=== PATIENT | female | born 1950 | race Caucasian/White ===

== ENCOUNTER → 2018-03-01 | Outpatient (CLI) | payer MEDICARE | LOC: M.RAD 01-02 10:09 | DX: Z12.31 Encounter for screening mammogram for malignant neoplasm of breast (principal); M85.89 Other specified disorders of bone density and structure, multiple sites; Z78.0 Asymptomatic menopausal state ==

== ENCOUNTER → 2019-03-10 | Outpatient (CLI) | payer MEDICARE | LOC: M.RAD 06:59 | DX: Z12.31 Encounter for screening mammogram for malignant neoplasm of breast (principal) ==

== ENCOUNTER → 2020-03-29 | Outpatient (CLI) | payer MEDICARE | LOC: M.RAD 07:30 | PROVIDERS: ATTEND Family Medicine | DX: Z12.31 Encounter for screening mammogram for malignant neoplasm of breast (principal) ==

== ENCOUNTER 2020-09-25 08:55 | Emergency (ER) | payer MEDICARE ==
[~2020-09-25] VITALS: Ht 154.9 cm; Wt 63.5 kg
[2020-09-25] MEDS ORDERED: PRAVASTATIN SOD80 MG PO (09:07)
[2020-09-25] MEDS ORDERED: NORVASC10 MG PO (09:08)
[2020-09-25 09:29] LABS: ABSOLUTE EOSINOPHILS 0.1 thou/uL (0.0-0.7); ABSOLUTE MONOCYTES 0.6 thou/uL (0.0-1.2); ABSOLUTE NEUTROPHILS 4.8 thou/uL (1.6-8.1); BASOPHILS 0.6 %; EOSINOPHILS 1.8 %; HEMATOCRIT 41.3 % (37.0-47.0); HEMOGLOBIN 13.7 gm/dL (12.0-15.0); LYMPHOCYTES 26.3 %; MCHC 33.3 g/dL (28.0-37.0); MONOCYTES 7.7 %; MPV 6.9 fl. (7.2-11.1); NUCLEATED RBCS 0 /100WBC; PLATELET COUNT* 315 thou/uL (150-400); POLYS 63.6 %; RBC 4.74 mil/uL (4.20-5.00); RDW-CV 12.8 % (10.5-14.5); WBC 7.5 thou/uL (4.0-11.0)
[2020-09-25 09:41] LABS: CALCIUM 8.7 mg/dL (8.5-10.1); POTASSIUM 4.1 mmol/L (3.5-5.1)
[2020-09-25 09:45] LABS: APTT 26.5 Seconds (25.0-31.3); PROTIME 10.5 Seconds (9.20-11.50)
[2020-09-25 09:52] LABS: ALBUMIN 3.4 g/dL (3.4-5.0); TOTAL BILIRUBIN 0.7 mg/dL (<0.1-1.0)
[2020-09-25 11:50] VITALS: BP 176/75
--- NOTE | 2020-09-26 10:16 | EKG ---
[place] [address] ELECTROCARDIOGRAM REPORT Name: DEA DHILLON Room: [facility]#: [id number] Admission: 09/25/20 Attend Phys: Discharge: 09/25/20 Date of : 50 Date of Service: 09/25/20901 Report #: [id number] THIS REPORT FOR: //name// [facility] ED Test Date: 2020-09-25 Test Time: 09:02:31 Pat Name: DEA DHILLON Department: Room: Gender: Pipe Maker: NELLI : 1950 Requested By: Shiela rEickson Order Number: [id number] MD: Usama Maya Measurements Intervals [place] Rate: 69 P: 7 SC: 177 QRS: 19 QRSD: 103 T: 7 QT: 441 QTc: 473 Interpretive Statements Sinus rhythm Paired ventricular premature complexes Borderline repolarization abnormality Baseline wander in lead(s) II,aVF,V3 No previous ECG available for comparison Electronically Signed On 09-26-2020 10:16:27 [employer]PER[employer] by Usama Maya [email or web address] <ELECTRONICALLY SIGNED> By: Usama Maya MD, FACC 09/26/20 [id number] Usama Maya MD, [facility] /EPI
== END 2020-09-25 11:53 | disposition home or self-care (01) ==
LOC: M.ERS 08:55
PROVIDERS: Personal Emergency Response Attendant
DX: R07.89 Other chest pain (principal); M32.9 Systemic lupus erythematosus, unspecified; R20.0 Anesthesia of skin; Z88.0 Allergy status to penicillin; Z98.890 Other specified postprocedural states

== ENCOUNTER → 2021-03-28 | Outpatient (CLI) | payer MEDICARE ==
[~2021-03-28] MED LIST: NORVASC10 MG PO; PRAVASTATIN SOD80 MG PO
== END ==
LOC: M.RAD 07:00
PROVIDERS: ATTEND Family Medicine
DX: Z12.31 Encounter for screening mammogram for malignant neoplasm of breast (principal); N64.89 Other specified disorders of breast

== ENCOUNTER → 2021-10-20 | Outpatient (CLI) | payer MEDICARE | LOC: M.RAD 08:45 | PROVIDERS: ATTEND Nurse Practitioner Family | DX: M85.88 Other specified disorders of bone density and structure, other site (principal); M81.0 Age-related osteoporosis without current pathological fracture; Z78.0 Asymptomatic menopausal state ==